=== PATIENT | female | born 1990 | race Caucasian/White ===

== ENCOUNTER 2017-05-28 08:12 | Inpatient (IN) | payer BC ==
[2017-05-28 11:39] LABS: ABS Basophils 0.1 10^3/ul (0-0.2); ABS Eosinophils 0.1 10^3/ul (0-0.6); ABS Lymphocytes 2.1 10^3/ul (1.0-4.8); ABS Monocytes 0.7 10^3/ul (0-0.8); ABS Neutrophils 11.1 10^3/ul (1.5-7.7); ABS Nucleated RBC 0 10^3/ul; Hematocrit 29 % (35-47); Hemoglobin 9.7 g/dl (12.0-16.0); Lymphocyte % 14.8 % (25-47); Mean Corpuscular HGB Conc 34 g/dl (31-36); Mean Corpuscular Hemoglobin 28 pg (27-31); Mean Corpuscular Volume 81 fL (80-97); Mean Platelet Volume 8 um3 (7.4-10.4); Nucleated Red Blood Cells % 0; Platelet Count 238 10^3/ul (150-450); Red Blood Count 3.53 10^6/ul (4.0-5.4); Red Cell Distribution Width 14 % (10.5-15); White Blood Count 14.1 10^3/ul (3.5-10.8)
[2017-05-28 12:04] LABS: Monocytes % 4 % (0-13)
[2017-05-28] MEDS ORDERED: Oxytocin in LR* 20 UNITS/1,000 ML BAG IVPB ONE (20:57)
[2017-05-28] MEDS ORDERED: Misoprostol TAB* 200 MCG PR ONE (21:38)
[2017-05-28] MEDS ORDERED: Witch Hazel PAD* JAR TOPICAL PRN (21:38)
[2017-05-28] MEDS ORDERED: Glycerin ADULT SUPP PR PRN (21:38)
[2017-05-28] MEDS ORDERED: Methylergonovine INJ* 0.2 MG/ML 1ML AMP IM ONE (21:38)
[2017-05-28] MEDS ORDERED: Dibucaine 1% 28.35 GM TUBE PR PRN (21:38)
[2017-05-28] MEDS ORDERED: Oxytocin in LR* 20 UNITS/1,000 ML BAG IVPB SCH (22:00)
[2017-05-28] MEDS: Ibuprofen TAB* 600 MG PO PRN (22:23)
[2017-05-29] MEDS: Ibuprofen TAB* 600 MG PO PRN ×3 (04:10→18:17)
[2017-05-29] MEDS: Docusate CAP* 100 MG PO SCH ×3 (07:55→19:48)
[2017-05-29] MEDS: Acetaminophen TAB* 325 MG PO PRN ×2 (07:55→19:48)
[2017-05-29 08:02] LABS: ABS Basophils 0.1 10^3/ul (0-0.2); ABS Eosinophils 0.1 10^3/ul (0-0.6); ABS Lymphocytes 2.3 10^3/ul (1.0-4.8); ABS Monocytes 1.3 10^3/ul (0-0.8); ABS Neutrophils 13.2 10^3/ul (1.5-7.7); ABS Nucleated RBC 0.02 10^3/ul; Eosinophil % 0.3 % (0-6); Hematocrit 25 % (35-47); Hemoglobin 8.4 g/dl (12.0-16.0); Lymphocyte % 13.5 % (25-47); Mean Corpuscular HGB Conc 34 g/dl (31-36); Mean Corpuscular Hemoglobin 27 pg (27-31); Mean Corpuscular Volume 81 fL (80-97); Mean Platelet Volume 7 um3 (7.4-10.4); Nucleated Red Blood Cells % 0.1; Platelet Count 216 10^3/ul (150-450); Red Blood Count 3.07 10^6/ul (4.0-5.4); Red Cell Distribution Width 14 % (10.5-15); White Blood Count 16.9 10^3/ul (3.5-10.8)
[2017-05-29] MEDS: Ferrous Gluconate TAB* 324 MG TAB PO SCH ×2 (08:52→19:48)
[2017-05-30] MEDS: Ibuprofen TAB* 600 MG PO PRN ×2 (03:28→09:00)
--- NOTE | 2017-05-30 07:34 | PTEDU ---
Patient Name: MOY CHOW MOY CHOW selected video: Never Ever Shake a Baby to view on 05/30/2017 at 7:33:53 AM from [facility] [id number]
[2017-05-30 08:07] VITALS: BP 110/60
[2017-05-30] MEDS ORDERED: RHO D Immune Globulin (HUMAN)* 300 MCG = 1,500 I.U. INJ IM ONE (08:51)
[2017-05-30] MEDS: Ferrous Gluconate TAB* 324 MG TAB PO SCH (08:59)
[2017-05-30] MEDS: Docusate CAP* 100 MG PO SCH (08:59)
== END 2017-05-30 13:28 | disposition home or self-care (01) | DRG 560 ==
LOC: MCHOBOUT 08:12 → MCHOB 08:29
PROVIDERS: ADMIT Midwife; ATTEND Midwife
PROC: 10E0XZZ Delivery of Products of Conception, External Approach (ICD-10-PCS; principal; 2017-05-28)
PROC: 4A1HXCZ Monitoring of Products of Conception, Cardiac Rate, External Approach (ICD-10-PCS; 2017-05-28)
PROC: 0HQ9XZZ Repair Perineum Skin, External Approach (ICD-10-PCS; 2017-05-28)
DX: O69.81X0 Labor and delivery complicated by cord around neck, without compression, not applicable or unspecified (principal); K64.9 Unspecified hemorrhoids; O70.0 First degree perineal laceration during delivery; Z3A.39 39 weeks gestation of pregnancy; Z37.0 Single live birth; Z88.1 Allergy status to other antibiotic agents; O90.81 Anemia of the puerperium; O75.89 Other specified complications of labor and delivery
CPT/HCPCS: 36415; 84112; 85025; 85461; 86850; 86870; 86880; 86900; 86901; A9270-GY; J2210; J2790

== ENCOUNTER 2017-06-11 19:04 | Emergency (ER) | payer BC ==
[2017-06-11 19:17] VITALS: BP 121/78
--- NOTE | 2017-06-11 19:27 | UC ---
FLU HPI - HPI Summary HPI Summary: Pt presents accompanied by for generalized body aches, weakness, dizziness, and fever. She is 2 weeks s/p vaginal delivery of her child. She tells me that during the delivery she "lost a lot of blood" and needed "sutures and iron", her OBGYN recommended to keep taking the vitamin - but she admits she has not been great about taking it daily. This morning she develop generalized body aches and weakness. Around 1000 she took her to the head inspector and center marker's office for a check-up, while there pt felt very lightheaded and like she "was going to pass out". She recalls having people talk to her, but she couldn't focus on what they were saying and she felt like she was in a tunnel. She did not tell anyone and she did not pass out or have LOC. Since that time she has been trying to rest at home, but has still not felt well. She does admit to being very tired with the new infant at home and is up "all night long". Also, a few hours ago she developed right breast redness, swelling, and pain. - History of Current Complaint Hx Obtained From: Patient Hx Last Menstrual Period: lactating; has lochia Onset/Duration: Sudden Onset Severity Currently: Severe Severity Initially: Severe Pain Intensity: 10 Pain Scale Used: 0-10 Numeric <Tam Ambrocio - Last Filed: 06/11/17 22:03> <Kay Vaz - Last Filed: 06/12/17 07:16> - History of Current Complaint Chief Complaint: UCGeneralIllness Stated Complaint: FEVER,CHILLS,ACHES Time Seen by Provider: 06/11/17 19:23 - Allergy/Home Medications Allergies/Adverse Reactions: Allergies Allergy/AdvReac Type Severity Reaction Status Date / Time Cefaclor [From [facility]] Allergy Intermediate Hives Verified 06/11/17 20:32 PMH/Surg Hx/FS Hx/Imm Hx - Surgical History Surgical History: None - Social History Lives: With Family Alcohol Use: Occasionally Alcohol Amount: stopped with this Substance Use Type: None Smoking Status (MU): Never Smoked Tobacco Have You Smoked in the Last Year: No - Immunization History Most Recent Influenza Vaccination: 03/05/17 Most Recent Pneumonia Vaccination: N/A <Tam Ambrocio - Last Filed: 06/11/17 22:03> Review of Systems Constitutional: Fever, Chills Skin: Other - Redness and pain right breast ENT: Negative Respiratory: Negative Cardiovascular: Negative Gastrointestinal: Abdominal Pain - Generalized Neurovascular: Negative Neurological: Weakness Psychological: Negative All Other Systems Reviewed And Are Negative: Yes <Tam Ambrocio - Last Filed: 06/11/17 22:03> Physical Exam Triage Information Reviewed: Yes Appearance: Ill-Appearing Vital Signs: Initial Vital Signs Temp 101 F 06/11/17 19:12 Pulse 130 06/11/17 19:12 Resp 18 06/11/17 19:12 BP 121/78 06/11/17 19:12 Pulse Ox 100 06/11/17 19:12 Vital Signs Reviewed: Yes Eyes: Positive: Conjunctiva Clear. Negative: Conjunctiva Inflamed, Discharge Neck: Positive: Supple, Nontender, No Lymphadenopathy Respiratory: Positive: Chest non-tender, Lungs clear, Normal breath sounds, No respiratory distress, No accessory muscle use Cardiovascular: Positive: No Murmur, Pulses Normal, Tachycardia Abdomen Description: Positive: No Organomegaly, Soft. Negative: Distended, Guarding Bowel Sounds: Positive: Present Neurological: Positive: Fatigued Psychological: Positive: Age Appropriate Behavior Skin: Positive: Other - Erythema, edema, and TTP right breast. Lips are chapped and appear dry. <Tam Ambrocio - Last Filed: 06/11/17 22:03> Vital Signs: Initial Vital Signs Temp 101 F 06/11/17 19:12 Pulse 130 06/11/17 19:12 Resp 18 06/11/17 19:12 BP 121/78 06/11/17 19:12 Pulse Ox 100 06/11/17 19:12 <Kay Vaz - Last Filed: 06/12/17 07:16> Flu Course/Dx - Course Course Of Treatment: Given her concerning symptoms, tachycardia, and fever - I advised the patient be seen in the ED. They agreed to go via private car. Pt left in stable condition. POC influenza was negative. EKG revealed sinus tachycardia at [address] changes. - Differential Dx/Diagnosis Provider Diagnoses: Dehydration. Weakness. Dizziness. Fever. Tachycardia <Tam Ambrocio - Last Filed: 06/11/17 22:03> Discharge - Discharge Plan Discharge Disposition Comment: To [facility] by private car <Tam Ambrocio - Last Filed: 06/11/17 22:03> - Discharge Plan Discharge Disposition Comment: [facility] to POV <Kay Vaz - Last Filed: 06/12/17 07:16> - Discharge Plan Condition: Stable Disposition: OTHER Referrals: Amando Peters MD [Primary Care Provider] - Additional Instructions: The provider that examined you today recommended that you go to the Emergency Room for further evaluation of your fever, weakness, and elevated heart rate. Attestation Statement User Type: Provider - I was available for consult. This patient was seen by the MAUREEN. The patient was not presented to, seen by, or examined by me. -Fly <Kay Vaz - Last Filed: 06/12/17 07:16>
[2017-06-11] MEDS ORDERED: Acetaminophen TAB* 325 MG PO ONE (19:50)
== END 2017-06-11 20:10 ==
LOC: UCEAST 19:04
DX: E86.0 Dehydration (principal); R53.1 Weakness; R42 Dizziness and giddiness; R50.9 Fever, unspecified; R00.0 Tachycardia, unspecified; N64.4 Mastodynia; R10.84 Generalized abdominal pain; Z88.1 Allergy status to other antibiotic agents
CPT/HCPCS: 87502; 93005; 99211; A9270-GY; G0463

== ENCOUNTER 2017-06-11 20:25 | Emergency (ER) | payer BC ==
[2017-06-11] MEDS ORDERED: Acetaminophen TAB* 325 MG PO ONE (20:54)
[2017-06-11] MEDS ORDERED: NS 0.9% 1000 ML* 2,000 ML IV ONE (21:23)
[2017-06-11 22:17] LABS: Hematocrit 31 % (35-47); Hemoglobin 10.3 g/dl (12.0-16.0); Mean Corpuscular HGB Conc 33 g/dl (31-36); Mean Corpuscular Hemoglobin 26 pg (27-31); Mean Corpuscular Volume 80 fL (80-97); Mean Platelet Volume 7 um3 (7.4-10.4); Platelet Count 321 10^3/ul (150-450); Red Blood Count 3.91 10^6/ul (4.0-5.4); Red Cell Distribution Width 15 % (10.5-15)
[2017-06-11 22:27] LABS: EGFR Non-African American 115.1 (>60)
[2017-06-11] MEDS ORDERED: Clindamycin 900 MG IVPREMIX(* 900 MG/50 ML SDV IV ONE (22:40)
[2017-06-11] MEDS ORDERED: Potassium Chloride LIQUID* 20 MEQ PACKET PO ONE (23:59)
[2017-06-12 02:11] VITALS: BP 106/60
--- NOTE | 2017-06-12 08:02 | RAD ---
INDICATION: Right breast in duration evaluate for abscess. COMPARISON: There are no prior studies available for comparison. TECHNIQUE: Multiple real time images of the right breast were obtained. FINDINGS: No cystic lesions or fluid collections are present. No solid abnormalities are noted. No increased vascularity is seen. IMPRESSION: NO EVIDENCE FOR ABSCESS. ACR BIRADS Category 1: Negative
--- NOTE | 2017-06-12 09:24 | CONS ---
CC: Amando Peters MD CONSULTATION NOTE: DATE OF CONSULT: 06/12/17 PRIMARY CARE PHYSICIAN: Amando Peters MD. TIME OF EVALUATION: 0030. CHIEF COMPLAINT: Fever and breast pain. HISTORY OF PRESENT ILLNESS: This is a 27-year-old female who has a 2-week old, who presented from Urgent Care to the emergency room for fever and right-sided breast redness, tenderness, and pain. The patient states she has been having difficulties with breast feeding. She has has some right-sided tenderness for the past two days and then in yesterday afternoon, she developed redness in the right breast and fever and nausea. No vomiting. She felt this morning she was having a panic attack. She did see the line inspector for her 2-week check up for her baby girl, did see the polymer materials consultant. There was no redness or concern for mastitis at that time. The patient was seen in Urgent Care, they felt that she needed to come to the emergency room for further evaluation. The patient denies any URI symptoms. No chest pain, no shortness of breath. No vomiting, diarrhea, or abdominal discomfort. She had pumped in the emergency room and she is planning on switching over to formula as this is very trying for her. In the emergency room, the patient had labs and imaging. She was given 2 L of normal saline, potassium chloride, clindamycin, and then 500 mg Tylenol, and referred to the hospitalist service for further evaluation, otherwise review of systems negative. PAST MEDICAL HISTORY: Vaginal delivery on 05/28/17 to a baby girl with no complications. MEDICATIONS: 1. vitamin. 2. Iron, though patient has not been tolerating the iron supplement. ALLERGIES: CEFACLOR cause hives. SOCIAL HISTORY: The patient with her fireina and their 2-week old baby girl and her fiance's parents. No tobacco or illicit drug use. FAMILY HISTORY: Reviewed and noncontributory. REVIEW OF SYSTEMS: A 14-point review of systems as mentioned in the HPI, otherwise negative. PHYSICAL EXAM: Vitals: Temp 101.5, pulse rate 140, respiratory rate is 16, O2 saturation 95% on room air, blood pressure 130/73. General: No acute distress , resting comfortably with her fireina at the bedside. HEENT: Head, normocephalic. Pupils are equally reactive, anicteric. Oropharynx: Mucous membranes moist. Neck is supple. No adenopathy. Cardiac: Regular rate and rhythm with no murmurs, rubs or gallops. Respiratory: Clear to auscultation; no wheezing, rhonchi, or rales. Abdomen is soft, nontender. Extremities: No clubbing, cyanosis, or edema. Breast: Patient with edematous right breast with erythema and tenderness. No fluctuance or induration. Her bilateral nipples are noted to be cracked with some bloody drainage on the right nipple. Neurologic: Alert and oriented x3. No focal neurologic deficits. DIAGNOSTIC STUDIES/LAB DATA: White count 24, hemoglobin 10.3, hematocrit 31. Sodium 135, potassium 3.3, chloride 102, bicarb 23, BUN 6, creatinine 0.63, glucose 119. Flu is negative. Breast CT, no cyst or solid mass is documented. There may be prominent ducts in the 1 and 2 projections, continuing hypoechoic material. ASSESSMENT: This is a 27-year-old female with spontaneous vaginal delivery 2 weeks ago, who now presents to the emergency room from urgent care with fever and right breast redness and swelling, found to have mastitis. Discussed discharge back to home with supportive care including antibiotics, encouraging fluids. I discussed with ER physician Dr. Bansal regarding repeating vitals. If her vitals have improved including her heart rate and she will be able to tolerate the p.o. challenge, she could be sent home on antibiotics and followup with her primary or with her OB. I discussed with the patient ice, and continuing pumping. If her symptoms worsen or persists that she should followup with her primary or return to the emergency room. The patient is comfortable with this recommendation and followup and I also discussed with Dr. Bansal who is in agreement. PATIENT TIME: Greater than 45 minutes was spent doing this consultation, more than half the time spent in direct patient contact. [id number]/[facility] #: [id number] KAY
--- NOTE | 2017-06-12 20:37 | ED ---
IYuki Emily, scribed for Amando Bansal MD on 06/12/17 at 0022 . Progress - Progress Note Progress Note: Pt continues to have pain in breast. No improvement with IV fluids. Pt is stable for discharge home with followup from PCP. - Results/Orders Results/Orders: Ultrasound US Breast reveals, per radiologist, no cyst or solid mass is documented. Advise further evaluation by breast imaging or user support specialist and/or REGISTER CLERK followup. Course/Dx - Diagnoses Provider Diagnoses: Mastitis without abscess - Provider Notifications Instructed by Provider To: Have Pt Call For Appt. - discharge on oral fluids, warm soaks, clindamycin 300mg q6 The documentation as recorded by the scribeYuki Emily accurately reflects the service I personally performed and the decisions made by me, Amando Bansal MD.
--- NOTE | 2017-06-13 13:49 | ED ---
Steve Dickey Stephanie, scribed for Dash Barreto MD on 06/11/17 at 2114 . HPI Febrile Illness - HPI Summary HPI Summary: The pt is a 27 y/o F presenting to the ED with c/o fever that began today. Symptoms include dehydration, dizziness, SOB, body aches and pain in the R breast. The pt denies vomiting and diarrhea. She reports that her baby nurses every 3 hours for 15-20 minutes at a time. - History of Current Complaint Chief Complaint: EDFever Time Seen by Provider: 06/11/17 20:54 Hx Obtained From: Patient Hx Last Menstrual Period: lactating; has lochia Onset/Duration: Started Days Ago - 1 Timing: Constant Current Severity: Moderate Pain Intensity: 6 Pain Scale Used: 0-10 Numeric Aggravating Factors: Nothing Alleviating Factors: Nothing Associated Signs and Symptoms: Dizziness, SOB, Other: - dehydration, body aches , pain in R breast - Allergy/Home Medications Allergies/Adverse Reactions: Allergies Allergy/AdvReac Type Severity Reaction Status Date / Time Cefaclor [From Ceclor] Allergy Intermediate Hives Verified 06/11/17 20:32 PMH/Surg Hx/FS Hx/Imm Hx Endocrine/Hematology History: Denies: Hx Diabetes Cardiovascular History: Denies: Hx Hypertension Respiratory History: Denies: Hx Asthma - Surgical History Surgery Procedure, Year, and Place: None Infectious Disease History: No Infectious Disease History: Denies: Traveled Outside the [place] in Last 30 Days - Family History Known Family History: Positive: Unknown - Pt denies family history when asked - Social History Occupation: Employed Full-time Lives: With Family Alcohol Use: Occasionally Alcohol Amount: stopped with this Hx Substance Use: No Substance Use Type: Reports: None Smoking Status (MU): Never Smoked Tobacco Have You Smoked in the Last Year: No Review of Systems Positive: Fever, Other - dehydration, dizziness, . Negative: Chills Negative: Erythema Negative: Sore Throat Negative: Chest Pain Positive: Shortness Of Breath. Negative: Cough Negative: Abdominal Pain, Vomiting, Diarrhea, Nausea Negative: dysuria, hematuria Positive: Other - body aches, pain in R breast. Negative: Myalgia Negative: Rash All Other Systems Reviewed And Are Negative: Yes Physical Exam - Summary Physical Exam Summary: Constitutional: Well-developed, Well-nourished, Alert. (-) Distressed Skin: Warm, Dry HENT: Normocephalic; Atraumatic Eyes: Conjunctiva normal Neck: Musculoskeletal ROM normal neck. (-) JVD, (-) Stridor, (-) Tracheal deviation Cardio: Rhythm regular, rate normal, Heart sounds normal; Intact distal pulses; The pedal pulses are 2+ and symmetric. Radial pulses are 2+ and symmetric. (-) Murmur Pulmonary/Chest wall: Effort normal. (-) Respiratory distress, (-) Wheezes, (-) Rales Abd: Soft, (-) Tenderness, (-) Distension, (-) Guarding, (-) Rebound Musculoskeletal: (-) Edema Lymph: (-) Cervical adenopathy Neuro: Alert, Oriented x3 Psych: Mood and affect Normal Breast Exam: erythema overlying the LUQ of R breast. Ducts are indurated bilaterally. No palpable fluctuant area. No purulent discharge. Triage Information Reviewed: Yes Vital Signs On Initial Exam: Initial Vitals Temp Pulse Resp BP Pulse Ox 101.5 F 140 16 113/73 95 06/11/17 20:27 06/11/17 20:27 06/11/17 20:27 06/11/17 20:27 06/11/17 20:27 Vital Signs Reviewed: Yes Diagnostics - Vital Signs Vital Signs Temp Pulse Resp BP Pulse Ox 06/11/17 20:27 101.5 F 140 16 113/73 95 - Laboratory Result Diagrams: 06/11/17 22:00 06/11/17 22:00 Lab Statement: Any lab studies that have been ordered have been reviewed, and results considered in the medical decision making process. Course/Dx - Course Course Of Treatment: The pt presents tp the ED with fever that began earlier today. Symptoms include dehydration, dizziness, SOB, body aches and pain in the R breast. The pt denies vomiting and diarrhea. She will get an US to evaluate breast abscess. The pt appears clinically dehydrated. - Diagnoses Provider Diagnoses: Mastitis without abscess Discharge - Discharge Plan Condition: Stable Disposition: HOME Prescriptions: Clindamycin HCl [Clindamycin 150 MG CAP*] 300 mg PO QID #40 cap Patient Education Materials: Mastitis (ED) Referrals: Amando Peters MD [Primary Care Provider] - The documentation as recorded by the Steve sevilla Stephanie accurately reflects the service I personally performed and the decisions made by Estevan kang Jerry, MD.
== END 2017-06-12 02:10 | disposition home or self-care (01) ==
LOC: ED 20:25
DX: N61.0 Mastitis without abscess (principal); R42 Dizziness and giddiness; R06.02 Shortness of breath; E86.0 Dehydration
CPT/HCPCS: 36415; 80053; 83605; 85027; 96360; 99283; A9270-GY